=== PATIENT | female | born 1955 ===

== ENCOUNTER 2016-10-18 01:09 | Emergency (ER) | payer SELFPAY ==
[2016-10-18] MEDS ORDERED: Dexamethasone 4 mg/1 ml IM STA (01:45)
[2016-10-18] MEDS ORDERED: Dexamethasone 4 mg/1 ml ONE (01:51)
--- NOTE | 2016-10-18 02:13 | C.PDOC ---
History Of Present Illness 61 year old female presents to the ED with complaints of right lower back pain s /p falling down a flight of stairs 4 days ago. Patient states she was heading to work when she fell down the steps and notes the pain is making it difficult to stand up straight and walk. She has been taking Aleve with minimal relief and denies LOC, chest pain, numbness, tingling, incontinence, headache, abdominal pain, neck pain, or any other complaints at this time. Time Seen by Provider: 10/18/16 01:27 Chief Complaint (Nursing): Back Pain Past Medical History Vital Signs: Last Vital Signs Temp 97.9 F 10/18/16 01:14 Pulse 81 10/18/16 01:14 Resp 20 10/18/16 01:14 BP 169/81 H 10/18/16 01:14 Pulse Ox 96 10/18/16 01:14 - Medical History PMH: HTN, Osteoporosis - Social History Hx Alcohol Use: No Hx Substance Use: No - Immunization History Hx Tetanus Toxoid Vaccination: No Hx Influenza Vaccination: No Hx Pneumococcal Vaccination: No ED Course And Treatment O2 Sat by Pulse Oximetry: 96
--- NOTE | 2016-10-18 02:17 | C.PDOC ---
History Of Present Illness 61 year old female presents to the ED with complaints of right lower back pain s /p falling down a flight of stairs 4 days ago. Patient states she was heading to work when she fell down the steps and notes the pain is making it difficult to stand up straight and walk. She has been taking Aleve with minimal relief and denies LOC, chest pain, numbness, tingling, incontinence, headache, abdominal pain, neck pain, or any other complaints at this time. Time Seen by Provider: 10/18/16 01:27 Chief Complaint (Nursing): Back Pain History Per: Patient History/Exam Limitations: no limitations Onset/Duration Of Symptoms: Days Current Symptoms Are (Timing): Still Present Quality Of Discomfort: "Pain" Severity: Mild Previous Symptoms: None Associated Symptoms: None Past Medical History Reviewed: Historical Data, Nursing Documentation, Vital Signs Vital Signs: Last Vital Signs Temp 97.7 F 10/18/16 03:50 Pulse 59 L 10/18/16 03:50 Resp 18 10/18/16 03:50 BP 150/88 10/18/16 03:50 Pulse Ox 96 10/18/16 04:10 - Medical History PMH: HTN, Osteoporosis Family History: States: Unknown Family Hx - Social History Hx Alcohol Use: No Hx Substance Use: No - Immunization History Hx Tetanus Toxoid Vaccination: No Hx Influenza Vaccination: No Hx Pneumococcal Vaccination: No Review Of Systems Except As Marked, All Systems Reviewed And Found Negative. Constitutional: Negative for: Fever, Chills Cardiovascular: Negative for: Chest Pain Respiratory: Negative for: Shortness of Breath Gastrointestinal: Negative for: Vomiting, Abdominal Pain Genitourinary: Negative for: Incontinence Musculoskeletal: Positive for: Back Pain. Negative for: Neck Pain Neurological: Negative for: Weakness, Numbness Physical Exam - Physical Exam Appears: Non-toxic, Other (+Mild discomfort) Skin: Normal Color, Warm, Dry Head: Atraumatic, Normacephalic Eye(s): bilateral: Normal Inspection Oral Mucosa: Moist Neck: Normal ROM, No Midline Cervical Tenderness, No Paracervical Tenderness, No Step Off Deformity, Supple Chest: Symmetrical, No Deformity, No Tenderness Cardiovascular: Rhythm Regular, No Murmur Respiratory: Normal Breath Sounds, No Accessory Muscle Use, No Rales, No Rhonchi , No Wheezing Gastrointestinal/Abdominal: Soft, No Tenderness, No Distention, No Guarding, No Rebound Back: No CVA Tenderness, No Vertebral Tenderness, Muscle Spasm, No Paraspinal Tenderness, No Straight Leg Raising Extremity: Normal ROM, No Deformity Neurological/Psych: Oriented x3, Normal Speech, Normal Cognition ED Course And Treatment O2 Sat by Pulse Oximetry: 96 (Room air) Pulse Ox Interpretation: Normal - CT Scan/US CT Lumbar Spine w/o contrast Other Rad Studies (CT/US): Read By Radiologist, Radiology Report Reviewed CT/US Interpretation: FINDINGS: Vertebrae: There is an exaggerated lumbar lordosis. No significant spondylolisthesis. There is an age-indeterminate moderate compression fracture of the L1 vertebral body with mild retropulsion of the posterior cortex. No significant resulting spinal canal stenosis Schmorl' s nodes of the T11 and T12 vertebral bodies with mild/moderate loss of vertebral body height is also noted. Additional ageindeterminate. compression fractures of these vertebra are not excluded. Discs/spinal canal/neural foramina: No acute findings. No high-grade spinal canal stenosis or neuroforaminal narrowing. Soft tissues: Unremarkable. IMPRESSION: Age- indeterminate moderate compression fracture of the L1 vertebral body as described above. Comparison to prior studies and/or correlation with point tenderness is recommended. Schmorl's nodes of the T11 and T12 vertebral bodies with mild/moderate loss of height of these vertebra also noted. Additional age- indeterminate compression fractures of these vertebra are not excluded. Comparison to prior studies and/or correlation with point tenderness is recommended. Please note that an MRI of the spine could be performed for further evaluation of the above-described findings. Medical Decision Making Medical Decision Making: Plan: -LS Spine AP/LAT -Decadron -Flexeril -Toradol -Reassess On re-exam, the patient remains active and alert, resting comfortably. Ambulatory in the ED with steady gait and without assistance. Lungs remains CTA , heart is RRR, abdomen is soft, non-tender and tolerating PO well. Follow up with the medical doctor within 1-2 days. Return if worsened. Disposition - Disposition Referrals: at [facility] [Outside] Mahamed Saab MD [Non-Staff] - Disposition Time: 04:06 Condition: STABLE Additional Instructions: Follow up with the medical doctor within 1-2 days. Return if worsened. Prescriptions: Cyclobenzaprine [Flexeril] 10 mg PO TID PRN #30 tab PRN Reason: pain Naproxen [Naprosyn] 500 mg PO BID #20 tab Instructions: Vertebral Compression Fracture (ED) Forms: Work Excuse - Clinical Impression Clinical Impression: Contusion of back, Compression fracture - PA / PROVIDER RELATIONS MANAGER / Resident Statement MD/DO has reviewed & agrees with the documentation as recorded. - Scribe Statement The provider has reviewed the documentation as recorded by the Scribe Ko Cyole. All medical record entries made by the Jaelibraad were at my direction and personally dictated by me. I have reviewed the chart and agree that the record accurately reflects my personal performance of the history, physical exam, medical decision making, and the department course for this patient. I have also personally directed, reviewed, and agree with the discharge instructions and disposition.
[2016-10-18 03:50] VITALS: BP 150/88; PULSE 59; RESP 18; TEMP 97.7
[2016-10-18 03:55] VITALS: O2SAT 96
--- NOTE | 2016-10-18 10:08 | CT ---
PROCEDURE: CT Lumbar Spine without contrast HISTORY: low back injury and pain r/o fx COMPARISON: Comparison is made to the previous x-ray of the lumbar spine done on the same day TECHNIQUE: Axial computed tomography images were obtained of the lumbar spine without the use of intravenous contrast. Coronal and sagittal reformatted images were created and reviewed. Radiation dose: Total exam DLP = 347.7 mGy-cm. This CT exam was performed using one or more of the following dose reduction techniques: Automated exposure control, adjustment of the mA and/or kV according to patient size, and/or use of iterative reconstruction technique. FINDINGS: VERTEBRAE: There is [id number]-[id number] compression deformity of L1 vertebral body. There is also mild to moderate compression deformity of T11 and mild compression deformity of T12 vertebral bodies. The age of this compression fractures is indeterminate this study. Diffuse osteopenia is noted. DISCS/SPINAL CANAL/NEURAL FORAMINA: L1-2: Unremarkable. L2-3: Unremarkable. L3-4: Unremarkable. L4-5: Unremarkable. L5-S1: Unremarkable. PARASPINAL SOFT TISSUES: Unremarkable. OTHER FINDINGS: None. IMPRESSION: Moderate compression deformity of L1 vertebral body ,age indeterminate in this study. If clinically warranted further assessment by MRI is suggested if not contraindicated. Xqxu-[id number] compression deformity also noted at T11 and T12. Moderate diffuse osteopenia. No CT evidence of significant spinal or neural foraminal narrowing. Preliminary report was submitted by [facility].
--- NOTE | 2016-10-18 16:54 | RAD ---
PROCEDURE: Radiographs of the Lumbar Spine. HISTORY: fall, right sided paralumbar pain COMPARISON: No prior. FINDINGS: BONES: Compression deformity of T11, T12 and L1 vertebrae, age indeterminate. Questionable compression deformity L2 vertebra. The transverse processes and posterior elements appear intact. Normal alignment is maintained. Mild thoracic kyphosis. DISC SPACES: Unremarkable. OTHER FINDINGS: None. IMPRESSION: Multiple contiguous compression deformities of indeterminate age involving T11 through L1 and possibly L2 vertebra. Mild thoracic kyphosis.
== END 2016-10-18 04:18 | disposition home or self-care (01) ==
LOC: C.ER 01:09
DX: S30.0XXA Contusion of lower back and pelvis, initial encounter (principal); W10.8XXA Fall (on) (from) other stairs and steps, initial encounter; Y92.9 Unspecified place or not applicable; M48.56XA Collapsed vertebra, not elsewhere classified, lumbar region, initial encounter for fracture
CPT/HCPCS: 72100; 72131; 96372; 99284; J1100; J1885

== ENCOUNTER 2018-11-07 23:45 | Emergency (ER) | payer SELFPAY ==
[2018-11-07 23:53] VITALS: O2SAT 98
--- NOTE | 2018-11-08 00:03 | C.PDOC ---
Time Seen by Provider: 11/08/18 00:02 Chief Complaint (Nursing): Abdominal Pain Past Medical History Reviewed: Historical Data, Nursing Documentation, Vital Signs Vital Signs: Last Vital Signs Temp 99.6 F 11/07/18 23:50 Pulse 86 11/07/18 23:50 Resp 14 11/07/18 23:50 BP 128/87 11/07/18 23:50 Pulse Ox 98 11/07/18 23:50 - Medical History PMH: HTN, Osteoporosis Family History: States: No Known Family Hx - Social History Hx Alcohol Use: No Hx Substance Use: No - Immunization History Hx Tetanus Toxoid Vaccination: No Hx Influenza Vaccination: No Hx Pneumococcal Vaccination: No ED Course And Treatment - Laboratory Results Result Diagrams: 11/08/18 00:20 11/08/18 00:20 O2 Sat by Pulse Oximetry: 98 - CT Scan/US CT abd/pelvis Other Rad Studies (CT/US): Read By Radiologist, Radiology Report Reviewed CT/US Interpretation: CT SCAN OF THE ABDOMEN AND PELVIS WITH CONTRAST. CLINICAL HISTORY: Abdominal pain. TECHNIQUE: Multiple axial and coronal CT images were obtained through the abdomen and pelvis after administration of intravenous contrast material. COMMENTS: Mild cardiomegaly. Moderate sliding hiatal hernia. Bilateral basilar atelectatic pulmonary changes. Diffuse colonic diverticulosis. Uncomplicated proximal sigmoid diverticulitis without perforation or abscess formation. Moderate benign chronic compression deformities of the lower thoracic vertebral bodies. Increased kyphosis of the thoracolumbar junction. Secondary exaggerated lumbar lordosis. The liver is of uniform attenuation without mass or defect. There is no intra or extrahepatic biliary ductal dilatation. The spleen is normal. The gallbladder is within normal limits. The pancreas is of normal contour and attenuation characteristics. There is no evidence of adrenal mass. Both kidneys demonstrate prompt and equal nephrograms. The kidneys are normal in size, shape and configuration. There is no evidence of renal or ureteral mass. No renal or ureteral calculi are identified. There is no hydroureter or hydronephrosis. No evidence for appendicitis. No evidence for small or large bowel obstruction. There is no evidence of abdominal ascites or lymphadenopathy. There is no evidence of intrinsic or extrinsic bladder mass. There is no pelvic ascites or lymphadenopathy. Images of the lung bases show no evidence of pleural or pa renchymal mass. There are no pleural effusions. The bony structures are free of lytic or blastic lesions. IMPRESSION: Mild cardiomegaly. Moderate sliding hiatal hernia. Bilateral basilar atelectatic pulmonary changes. Diffuse colonic diverticulosis. Uncomplicated proximal sigmoid diverticulitis without perforation or abscess formation. Moderate benign chronic compression deformities of the lower thoracic vertebral bodies. Increased kyphosis of the thoracolumbar junction. Secondary exaggerated lumbar lordosis. Thank you for your kind referral of this patient. . Electronically signed on Nov 08, 2018 2:48:32 AM EDT by: Gilberto Mendes M.D., Certified by ABR, MSK, Neuroradiology. Medical Decision Making Medical Decision Making: Upon provider reevaluation patient is feeling better, is medically stable, and requires no further treatment in the ED at this time. Patient will be discharged home with Rx for flagyl, zofran, protonix . Counseling was provided and all questions were answered regarding diagnosis and need for follow up with the referred clinic. There is agreement to discharge plan. Return if symptoms persist or worsen. Disposition Counseled Patient/Family Regarding: Studies Performed, Diagnosis, Need For Followup, Rx Given - Disposition Referrals: [facility] at [facility] [Outside] [facility] [Outside] Disposition: HOME/ ROUTINE Disposition Time: 00:03 Condition: FAIR Additional Instructions: Please return if symptoms recur Prescriptions: Metronidazole [Flagyl] 500 mg PO TID #21 tablet Ondansetron ODT [Zofran ODT] 1 odt PO BID PRN #6 odt PRN Reason: Nausea/Vomiting Pantoprazole Sodium [Protonix] 40 mg PO DAILY #14 ect Instructions: Hiatal Hernia (DC), Diverticulosis (DC), Diverticulitis (DC) Forms: [employer] (Emirati) - Clinical Impression Clinical Impression: Abdominal pain, Nausea, Diverticulitis, Diverticulosis
[2018-11-08 00:24] LABS: BASO # 0.1 K/uL (0.0-0.2); BASO % 0.9 % (0.0-2.0); EOS # 0.4 K/uL (0.0-0.7); EOS % 3.4 % (0.0-4.0); HEMOGLOBIN 12.6 g/dL (11.0-16.0); LYMPH # 1.7 K/uL (1.0-4.3); LYMPH % 16.4 % (20.0-40.0); MEAN CORPUSCULAR HEMOGLOBIN 33.1 pg (27.0-31.0); MEAN CORPUSCULAR HGB CONC 34.9 g/dL (33.0-37.0); MEAN PLATELET VOLUME 8.1 fL (7.2-11.7); MONO # 0.9 K/uL (0.0-0.8); MONO % 8.6 % (0.0-10.0); NEUT # 7.5 K/uL (1.8-7.0); NEUT % 70.7 % (50.0-75.0); RBC 3.81 Mil/uL (3.80-5.20); WHITE BLOOD COUNT 10.6 K/uL (4.8-10.8)
[2018-11-08 00:29] LABS: URINE BACTERIA RARE (<OCC); URINE BILIRUBIN NEGATIVE (NEGATIVE); URINE BLOOD 1+ (NEGATIVE); URINE CLARITY Clear (Clear); URINE COLOR Yellow (YELLOW); URINE GLUCOSE (UA) NORMAL (Normal); URINE LEUKOCYTE ESTERASE NEG Leu/uL (Negative); URINE PROTEIN NEGATIVE (NEGATIVE); URINE UROBILINOGEN NORMAL mg/dL (0.2-1.0)
[2018-11-08 00:33] LABS: INR 1.2; PROTHROMBIN TIME 13.3 SECONDS (9.7-12.2)
[2018-11-08 00:35] LABS: ALB/GLOB RATIO 1.5 (1.0-2.1); ALBUMIN 4.4 g/dL (3.5-5.0); ALT/SGPT 10 U/L (9-52); AST/SGOT 28 U/L (14-36); BLOOD UREA NITROGEN 16 mg/dL (7-17); CALCIUM 8.8 mg/dl (8.6-10.4); GFR NON-AFRICAN AMERICAN > 60; LIPASE 154 U/L (23-300)
[2018-11-08] MEDS ORDERED: Iodixanol 320 MG/ML 100 ML BOTTLE IV ONE (00:45)
[2018-11-08 02:53] VITALS: BP 136/88; PULSE 72; RESP 18; TEMP 98.3
--- NOTE | 2018-11-08 07:22 | CT ---
CT abdomen and pelvis HISTORY: Abdominal pain. COMPARISON: None available. TECHNIQUE: Multiple contiguous axial images were performed through the abdomen and pelvis with the use of intravenous contrast. Subsequently, sagittal and coronal reformatted images were obtained. This CT exam was performed using one or more of the following dose reduction techniques: Automated exposure control, adjustment of the mA and/or kV according to patient size, and/or use of iterative reconstruction technique. FINDINGS: 2.7 millimeter focal area of nodular consolidation within the medial aspect of the right lower lobe of the lung. Additional scattered atelectasis throughout the lung bases. Mild cardiomegaly. No pleural or pericardial effusion. Prominent liver. Gallbladder is preserved. Spleen is preserved. Punctate splenule. Adrenal glands are preserved. Pancreas is preserved. Moderate hiatal hernia. Few distended loops of small bowel seen within the mid and lower abdomen which may represent an enteritis. Clinical correlation. Right kidney: Mild fullness of the right renal collecting system and ureter. Left Kidney: No calculi or hydronephrosis. Urinary bladder is preserved. Heterogeneous uterus with calcifications. Prominent colonic diverticulosis. Focal thickening of the proximal to mid sigmoid colon with adjacent prominent mesenteric fat stranding suggestive for a focal acute diverticulitis versus focal colitis. Post treatment interval follow-up is recommended to ensure resolution and exclude underlying mass lesion. Post treatment colonoscopy is recommended to exclude underlying mass lesion. Under distended descending colon as well as mid transverse colon. Appendix is within normal limits. Mild atherosclerotic calcification and plaque in the aorta. Few shotty para-aortic and inguinal lymph nodes. Few shotty mesenteric lymph nodes. Degenerative changes in the spine. Severe kyphotic curvature of the spine. Severe compression deformity of the L1 vertebral body. Moderate compression deformity of the T11 vertebral body. Mild inferior compression deformity of the T12 vertebral body. Additional multilevel inferior endplate concavities throughout the lumbar spine. Impression: 1. Prominent colonic diverticulosis. Focal thickening of the proximal to mid sigmoid colon with adjacent prominent mesenteric fat stranding suggestive for focal acute diverticulitis versus focal colitis. Post treatment interval follow-up is recommended to ensure resolution and exclude underlying mass lesion. Post treatment colonoscopy is recommended to exclude underlying mass lesion. Under distended descending colon as well as mid transverse colon. 2. Few distended loops of small bowel seen within the mid and lower abdomen which may represent an enteritis. Clinical correlation. 3. Moderate hiatal hernia. 4. 2.7 millimeter focal area of nodular consolidation within the medial aspect of the right lower lobe of the lung. Additional scattered atelectasis throughout the lung bases. These findings may represent the sequelae of acute infectious and or inflammatory changes. Clinical correlation. 5. Severe kyphotic curvature of the spine. Severe compression deformity of the L1 vertebral body. Moderate compression deformity of the T11 vertebral body. Mild inferior compression deformity of the T12 vertebral body. Additional multilevel inferior endplate concavities throughout the lumbar spine. 6. Mild cardiomegaly. A preliminary report was generated at 2:48 a.m. on 11/08/[address] Gilberto Mendes from [facility].
== END 2018-11-08 03:19 | disposition home or self-care (01) ==
LOC: C.ER 23:45
DX: K57.32 Diverticulitis of large intestine without perforation or abscess without bleeding (principal); K57.30 Diverticulosis of large intestine without perforation or abscess without bleeding; R11.0 Nausea; I10 Essential (primary) hypertension; M81.0 Age-related osteoporosis without current pathological fracture
CPT/HCPCS: 74177; 80053; 81001; 83690; 85025; 85610; 85730; 96374; 96375; 99284; J1885; Q9967